=== PATIENT | female | born 1970 | race Caucasian/White ===

== ENCOUNTER 2024-03-02 17:44 | Emergency (ER) | payer BC, SELFPAY ==
[2024-03-02 17:58] VITALS: BP 149/96
--- NOTE | 2024-03-02 18:06 | ED.GENMED ---
ED Provider Triage
-
Patient seen by provider in Triage?: Seen in Triage
Attestation: A medical screening examination has been initiated by a qualified medical provider. Based on the assessment performed at this time, it has been determined that an emergent medical condition may exist and the patient has been informed
that further medical evaluation and possible additional diagnostic testing may be needed.
HPI: 53-year-old female presents for upper respiratory infection. Has had cough, chest pain for 4 weeks, getting progressively worse. Saw Dr. Simental last week and diagnosed with bronchitis, and gave albuterol inhaler. She gave her a prescription
for a chest x-ray if her symptoms got worse. She is here for chest x-ray because her symptoms have not improved. Denies fever, denies N/V/D/C.
GENERAL: Alert , in no apparent distress
EYE: No visual abnormalities.
NECK: Trachea midline
ENT: No visible abnormalities.
LUNGS: No acute respiratory distress
NEUROLOGICAL: Alert and oriented
SKIN: Skin intact. No visible changes.
MUSCULOSKELETAL: Moving extremities normally
PSYCH: Normal and appropriate interaction.
This is a medical evaluation conducted in person to initiate diagnostic evaluation and provide initial therapeutics. Please see further documentation by the treating clinician.
History of Present Illness
General
Chief Complaint: Breathing Problem
Source: patient
Exam Limitations: none
Time Seen by Provider: 03/02/24 19:27
Nursing documentation reviewed up to this point in time: agreed with
History of Present Illness
History of Present Illness:
53-year-old female presents for upper respiratory infection. Has had cough, chest pain for 4 weeks, getting progressively worse. Saw Dr. Simental last week and diagnosed with bronchitis, and gave albuterol inhaler. She gave her a prescription for a
chest x-ray if her symptoms got worse. She is here for chest x-ray because her symptoms have not improved. Denies fever, denies N/V/D/C.
Past History
Past History
ED Past Medical History: None and Other (Migraines)
ED Past Surgical History:
Social History
Tobacco: Non-smoker
Personal:
Living: with family
Employment: Employed
Review of Systems
Review of Systems
Allergies reviewed?: Yes
All Other Systems: ROS reviewed and negative except as documented in HPI and ROS
Constitutional: Denies fever or chills
Respiratory: Reports cough; Denies trouble breathing
ABD/GI: Denies abdominal pain
Phy Exam
Physical Exam
Physical Exam:
GENERAL: No acute distress. A&Ox3.
CONSTITUTIONAL: Afebrile.
EYES: clear, conjunctivae normal
ENMT: moist mucus membranes, Pharynx nl
RESPIRATORY: Regular respirations, nonlabored, lungs clear.
CARDIOVASCULAR: Regular rate and rhythm, no murmurs, no rubs.
GI: Soft, nontender, normal BS
MUSCULOSKELETAL: Moves with ease. Well perfused.
SKIN: Warm, dry, pink
PSYCH: Normal mood and affect. Well kept, interactive and appropriate
NEUROLOGIC: Awake, alert and oriented. No focal neurological deficits
Scores
Heart Failure Risk
Heart Failure Risk Score: Not Applicable
Course
Orders/Labs/Results
Orders:
Orders
03/02/24 18:01
CR Chest - 2 Views Urgent
Comment:
Reason For Exam: cough
03/02/24 18:05
COVID-19 Antigen Urgent
Source: Nasal Swab
Influenza A+B Rapid Molecular Urgent
MARYURI Source: Nasal Swab
Specimen Description:
03/02/24 20:19
Azithromycin [Zithromax] 500 mg PO NOW STA
Vital Signs
Initial and Last Documented VS:
Initial Vital Signs
Temp Pulse Resp BP Pulse Ox
99.3 F 96 20 149/96 98
03/02/24 17:58 03/02/24 17:58 03/02/24 17:58 03/02/24 17:58 03/02/24 17:58
Last Documented Vital Signs
Temp Pulse Resp BP Pulse Ox
99.3 F 84 18 140/85 99
03/02/24 17:58 03/02/24 20:34 03/02/24 19:37 03/02/24 20:34 03/02/24 20:34
MDM/Problems Addressed
Differential Diagnosis Includes:
viral URI, PNA
MDM/Problems Addressed:
53-year-old female presents for upper respiratory infection. Has had cough, chest pain for 4 weeks, getting progressively worse. Saw Dr. Simental last week and diagnosed with bronchitis, and gave albuterol inhaler. She gave her a prescription for a
chest x-ray if her symptoms got worse. She is here for chest x-ray because her symptoms have not improved. Denies fever, denies N/V/D/C.
Covid neg
Flu neg
CXR NAD
Well-appearing 53-year-old female with a cough for 4 weeks. No relief with albuterol inhaler
Lungs CTA, no hypoxemia, chest x-ray normal
Plan: Zpack, short burst steroid, continue Albuterol as ordered.
PCP followup
*Critical Care Note
Total Time (30-74mins, 75-104mins- exclusive of procedures): Not Applicable
ED Attending Note
-
Portions of this chart may have been created with voice recognition software.� Occasional wrong word or��sound alike� substitutions may have occurred due to the inherent limitations of voice recognition software.
Discharge Plan
Departure
Patient Disposition: Home (Routine Discharge)
Date of Disposition: 03/02/24
Time of Disposition: 19:43
Patient with high blood pressure during this ER visit?: No
Condition: Good
Covid-19: Negative COVID-19
Discharge Problem:
Cough in adult, Acute bronchitis
Instructions: Cough in adults, Acute bronchitis in adults
Prescriptions:
New
azithromycin [Zithromax] 250 mg tablet
250 mg PO DAILY Qty: 4 0RF
prednisone 20 mg tablet
40 mg PO DAILY Qty: 8 0RF
No Action
ondansetron [Zofran ODT] 8 MG tablet,disintegrating
8 mg PO TIDPRN PRN (Reason: vomiting) Qty: 30 0RF
oxycodone 5 MG tablet
5 mg PO Q6H PRN (Reason: pain) Qty: 10 0RF
psyllium husk (aspartame) [Metamucil Fiber Singles] 1 PACKET powder in packet
1 packet PO DAILY Qty: 10 0RF
Referrals:
Radha Simental MD [Family Provider] - As needed
Activity Restrictions/Additional Instructions:
As we discussed, I sent a prescription to your pharmacy for prednisone to take 40 mg a day for the next 4 days.
I also sent a prescription to your pharmacy for azithromycin or Zithromax to take 250 mg a day for the next 4 days. Started tomorrow as you were given a dose here today.
Interventions
Interventions:
*General Assessment Last Done: 03/02/24 17:58
*Nursing Disposition Last Done: 03/02/24 20:34
ED- Cardiac Assessment Last Done: 03/02/24 20:30
ED- Pulmonary Assessment Last Done: 03/02/24 20:30
Discharge Date and Time
Discharge Date/Time: 03/02/24 20:38
Print Language: SLOVAK
[2024-03-02 18:48] LABS: COVID-19 Antigen Negative (Negative)
[2024-03-02 19:37] VITALS: BP 135/82
[2024-03-02] MEDS: ZITHROMAX 500 MG PO (20:26)
[2024-03-02 20:33] VITALS: BP 140/85
[2024-03-02 20:34] VITALS: BP 140/85
== END 2024-03-02 20:38 | disposition home or self-care (01) ==
LOC: EMR 17:44
PROVIDERS: Registered Nurse; EMERGENCY PHYSICIAN Emergency Medicine; FAMILY PHYSICIAN Internal Medicine
DX: J20.9 Acute bronchitis, unspecified (principal); R05.9 Cough, unspecified; Z11.52 Encounter for screening for COVID-19
CPT/HCPCS: 99284; 71046; 87502; 87811

== ENCOUNTER → 2024-10-02 08:17 | Outpatient (REF) | payer BC, SELFPAY | LOC: HWRCS 08:17 | PROVIDERS: ATTENDING PHYSICIAN Internal Medicine Interventional Cardiology; FAMILY PHYSICIAN Internal Medicine | DX: R00.2 Palpitations (principal) | CPT/HCPCS: 93306 ==